=== PATIENT | male | born 1950 | race American Indian/Alaskan Native ===

== ENCOUNTER 2019-04-03 11:08 | Day surgery (SDC) | payer BC, MEDICARE ==
[~2019-04-03 11:08] MED LIST: NACL 0.9% IR ONE; WATER FOR IRRIG STERILE IR ONE
--- NOTE | 2019-04-03 12:10 | Anesthesia Day of Surgery ---
Anesthesia Day of Surgery - Day of Surgery Patient Examined: Yes Patient H&P Reviewed: Yes Patient is NPO: Yes
--- NOTE | 2019-04-03 12:15 | Anesthesia Consultation ---
Anesthesia Consult and Med Hx Date of service: 04/03/19 - Airway Anesthetic Teeth Evaluation: Caps (LOOSE TEETH REPAIRED) ROM Head & Neck: Adequate Mental/Hyoid Distance: Adequate Mallampati Class: Class III Intubation Access Assessment: Probably Good - Pre-Operative Health Status ASA Pre-Surgery Classification: ASA2 Proposed Anesthetic Plan: General - Pulmonary Hx Smoking: No Hx Sleep Apnea: No - Cardiovascular System Hx Hypertension: Yes (Active) Hx Heart Attack/AMI: No - Central Nervous System Hx Back Pain: Yes (LOWER BACK PAIN AND NECK PAIN) Hx Psychiatric Problems: Yes (Anxiety/Depression) - Hematic Hx Anemia: No Hx Sickle Cell Disease: No - Other Systems Hx Alcohol Use: No Hx Substance Use: No Hx Cancer: Yes (Prostate)
[2019-04-03] MEDS ORDERED: ANCEF/STERILE WATER 2 GM/20 ML IV NR (12:30)
[2019-04-03] MEDS ORDERED: ZOFRAN IV PRN (12:30)
[2019-04-03] MEDS ORDERED: LACTATED RINGERS 1,000 ML IV SCH (13:00)
[2019-04-03] MEDS ORDERED: XYLOCAINE MPF 2% ONE (13:14)
[2019-04-03] MEDS ORDERED: DILAUDID ONE (13:14)
[2019-04-03] MEDS ORDERED: DIPRIVAN 10 MG/ML IV ONE (13:14)
[2019-04-03] MEDS ORDERED: WATER FOR IRRIG STERILE IR ONE (13:54)
[2019-04-03] MEDS ORDERED: NACL 0.9% IR ONE (13:54)
--- NOTE | 2019-04-03 15:04 | Post Operative Note ---
Date of procedure: 04/03/19 Pre-op diagnosis: cap post seeds Post-op diagnosis: same Findings: seeds 40 Procedure: cysto cryo Anesthesia: NAYELY Surgeon: ELEONORA KAY Estimated blood loss: minimal Pathology: none Condition: stable Disposition: PACU
--- NOTE | 2019-04-03 15:05 | Discharge Summary ---
Short Stay Discharge Plan Activity: other (no straining ) Weight Bearing Status: Full Weight Bearing Diet: low fat, low cholesterol, low salt Wound: other (ice in RR and 24 hrs ) Special Instructions: other (home with sam ) Durable Medical Equipment Needed Upon Discharge: other (sam ) Follow up with: PRIMARY CARE, [Primary Care Provider] - 7 Days
[2019-04-03] MEDS ORDERED: LASIX ONE (15:11)
[2019-04-03] MEDS ORDERED: ZOFRAN ONE (15:12)
--- NOTE | 2019-04-03 15:43 | Operative Report ---
PREOPERATIVE DIAGNOSIS: Recurrent adenocarcinoma of the prostate, post seed implantation radiation therapy. POSTOPERATIVE DIAGNOSIS: Recurrent adenocarcinoma of the prostate, post seed implantation radiation therapy. PROCEDURE: Salvage cryosurgical ablation of prostate. SURGEON: Sohail Mills MD ANESTHESIA: General. FINDINGS: This is a gentleman with previous radiation, who has recurrent prostate cancer. All risks and complications discussed. DESCRIPTION OF PROCEDURE: The patient was brought to the operating room and placed operating table. Following induction of anesthesia, placed in lithotomy position, prepped and draped in usual sterile fashion. Gupta catheter was easily inserted. The scrotum was retracted superiorly. Ultrasound visualization was excellent and there looked to be plenty of room between the rectum and the prostate. The gland measured approximately 40 grams. We placed probes 1 and 2. After that, all the probes were checked and then placed a Denonvilliers fascia within the capsule. The sphincter probe was then placed and then probes 5 and 6 and 3 and 4. There was plenty of room where 5 and 6 were placed between the rectum and the gland. First freeze was approximately 8-9 minutes, total and full thaw was carried out. Second freeze was carried out in symmetrical fashion. Denonvilliers got down to about 0 the first time and then approximately 8 degrees the second. Excellent ice was created and came slowly by starting at 70 and gradually 50 and then to 20-30, 5 and 6. The patient tolerated the procedure well. Family notified, brought to recovery room with Gupta catheter easily inserted after 20+ minute warming in stable condition. JOB# [id number] SATURNINO/VLAD
[2019-04-03] MEDS: SUBLIMAZE IV PRN ×4 (15:47→16:23)
[2019-04-03 18:56] VITALS: BP 163/85
--- NOTE | 2019-04-04 08:11 | Post Anesthesia Evaluation ---
- Post Anesthesia Evaluation Patient Participated: Yes Airway Patent: Yes Stable Respiratory Function: Yes Nausea/Vomiting: No Temp > 96.8F: Yes Pain Manageable: Yes Adequeate Hydration: Yes Anesthesia Complications: No Block Receding Appropriately: Not Applicable Patient on Ventilator: No
== END 2019-04-03 18:05 | disposition home or self-care (01) ==
LOC: OR 11:08
PROVIDERS: ATTEND Urology
DX: C61 Malignant neoplasm of prostate (principal); E78.00 Pure hypercholesterolemia, unspecified; I10 Essential (primary) hypertension; F32.9 Major depressive disorder, single episode, unspecified; F41.9 Anxiety disorder, unspecified; Z98.890 Other specified postprocedural states; Z79.82 Long term (current) use of aspirin; Z79.899 Other long term (current) drug therapy; Z98.41 Cataract extraction status, right eye; Z98.42 Cataract extraction status, left eye
CPT/HCPCS: 55873; A4217; C2618; J0690; J1170; J1940; J2405; J2704; J3010; J7120